=== PATIENT | female | born 1995 | race American Indian/Alaskan Native ===

== ENCOUNTER 2019-10-30 23:39 | Emergency (ER) | payer SELFPAY ==
[2019-10-31] MEDS ORDERED: SODIUM CHLORIDE 0.9% 1000 ML 1,000 ML ONE (00:03)
--- NOTE | 2019-10-31 00:04 | Emergency Department Report ---
ED Lower Extremity HPI - General Stated Complaint: LEFT KNEE DISLOCATED Time Seen by Provider: 10/30/19 23:48 Source: patient, EMS Mode of arrival: Stretcher Limitations: No Limitations - History of Present Illness Initial Comments: Patient is a 24-year-old female that presents emergency room with complaints of left knee pain. Patient states she was wrestling with her little sister and her knee popped. Patient states it immediately became deformed and became swollen. Patient states she is unable to move her knee due to the pain. Patient states the pain is a 10 out of 10. Patient states the pain is worse with movement better with rest and immobilization. Patient brought in by EMS and a long-leg splint. Report received from EMS. Patient given fentanyl 50 mcgs for pain. MD Complaint: knee injury -: Sudden Injury: Knee: Left Type of Injury: inversion Place: home Severity: severe Severity scale (0 -10): 10 Improves With: rest Worsens With: weight bearing, movement, palpation Context: fall Associated Symptoms: snap/pop sensation, swelling, unable to bear weight Treatments Prior to Arrival: splint - Related Data Previous Rx's Medication Instructions Recorded Last Taken Type Acetaminophen/Codeine [Tylenol 1 tab PO Q6H PRN #10 tab 10/31/19 Unknown Rx /Codeine # 3 tab] Allergies Allergy/AdvReac Type Severity Reaction Status Date / Time No Known Allergies Allergy Unverified 10/31/19 00:09 ED Review of Systems ROS: Stated complaint: LEFT KNEE DISLOCATED Other details as noted in HPI Comment: Last menstrual period 13 October Constitutional: denies: chills, fever Eyes: denies: eye pain, eye discharge, vision change ENT: denies: ear pain, throat pain Respiratory: denies: cough, shortness of breath, wheezing Cardiovascular: denies: chest pain, palpitations Endocrine: no symptoms reported Gastrointestinal: denies: abdominal pain, nausea, diarrhea Genitourinary: denies: urgency, dysuria, discharge Musculoskeletal: denies: back pain, joint swelling, arthralgia Skin: denies: rash, lesions Neurological: denies: headache, weakness, paresthesias Psychiatric: denies: anxiety, depression Hematological/Lymphatic: denies: easy bleeding, easy bruising ED Past Medical Hx - Past Medical History Previous Medical History?: No - Surgical History Past Surgical History?: No - Family History Family history: no significant - Social History Smoking Status: Never Smoker Substance Use Type: None - Medications Home Medications: Home Medications Medication Instructions Recorded Confirmed Last Taken Type Acetaminophen/Codeine [Tylenol 1 tab PO Q6H PRN #10 tab 10/31/19 Unknown Rx /Codeine # 3 tab] ED Physical Exam - General Limitations: No Limitations General appearance: alert, in no apparent distress - Head Head exam: Present: atraumatic, normocephalic - Eye Eye exam: Present: normal appearance - ENT ENT exam: Present: mucous membranes moist - Neck Neck exam: Present: normal inspection - Respiratory Respiratory exam: Present: normal lung sounds bilaterally. Absent: respiratory distress - Cardiovascular Cardiovascular Exam: Present: regular rate, normal rhythm. Absent: systolic murmur, diastolic murmur, rubs, gallop - GI/Abdominal GI/Abdominal exam: Present: soft, normal bowel sounds - Extremities Exam Extremities exam: Present: normal inspection (except for Left knee deformity.), full ROM (Except left knee), tenderness (Left knee tenderness), normal capillary refill, joint swelling. Absent: pedal edema, calf tenderness - Back Exam Back exam: Present: normal inspection - Neurological Exam Neurological exam: Present: alert, oriented X3 - Psychiatric Psychiatric exam: Present: normal affect, normal mood - Skin Skin exam: Present: warm, dry, intact, normal color. Absent: rash ED Course Vital Signs 10/31/19 10/31/19 10/31/19 00:04 00:15 00:16 Pulse Rate 75 Pulse Rate [ 106 H Intra-Procedure ] Pulse Rate [ Post-Procedure] Pulse Rate [Pre 69 -Procedure] Respiratory 17 18 Rate Respiratory 14 Rate [Intra- Procedure] Respiratory Rate [Post- Procedure] Respiratory 20 Rate [Pre- Procedure] Blood Pressure 149/94 [Intra- Procedure] Blood Pressure [Post-Procedure ] Blood Pressure 100/81 [Pre-Procedure] Blood Pressure 98/47 [Right] O2 Sat by Pulse 100 Oximetry O2 Sat by Pulse 100 Oximetry [ Intra-Procedure ] O2 Sat by Pulse Oximetry [Post -Procedure] O2 Sat by Pulse 100 Oximetry [Pre- Procedure] 10/31/19 10/31/19 10/31/19 00:17 00:30 00:45 Pulse Rate Pulse Rate [ Intra-Procedure ] Pulse Rate [ 129 H 97 H Post-Procedure] Pulse Rate [Pre 71 -Procedure] Respiratory Rate Respiratory Rate [Intra- Procedure] Respiratory 20 14 Rate [Post- Procedure] Respiratory 11 L Rate [Pre- Procedure] Blood Pressure [Intra- Procedure] Blood Pressure 156/94 140/83 [Post-Procedure ] Blood Pressure 124/69 [Pre-Procedure] Blood Pressure [Right] O2 Sat by Pulse Oximetry O2 Sat by Pulse Oximetry [ Intra-Procedure ] O2 Sat by Pulse 100 100 Oximetry [Post -Procedure] O2 Sat by Pulse 100 Oximetry [Pre- Procedure] 10/31/19 10/31/19 00:55 01:00 Pulse Rate 138 H Pulse Rate [ Intra-Procedure ] Pulse Rate [ 68 Post-Procedure] Pulse Rate [Pre -Procedure] Respiratory 18 Rate Respiratory Rate [Intra- Procedure] Respiratory 14 Rate [Post- Procedure] Respiratory Rate [Pre- Procedure] Blood Pressure [Intra- Procedure] Blood Pressure 118/65 [Post-Procedure ] Blood Pressure [Pre-Procedure] Blood Pressure [Right] O2 Sat by Pulse Oximetry O2 Sat by Pulse Oximetry [ Intra-Procedure ] O2 Sat by Pulse 100 Oximetry [Post -Procedure] O2 Sat by Pulse Oximetry [Pre- Procedure] - Reevaluation(s) Reevaluation #1: Initial evaluation done. Patient signed consent. Patient will have moderate sedation and a knee reduction. 10/31/19 00:04 Reevaluation #2: Patient's procedure done. Patient received ketamine for mild sedation. Patient's left patella was reduced without difficulty. No complication noted. See procedure note. We will continue to monitor the patient's vital signs and patient until the patient is back to baseline. 10/31/19 00:19 Reevaluation #3: Patient talking on the phone. Patient states she is feeling a little lightheaded. Patient's vital signs stable. We will continue to monitor the patient. 10/31/19 00:30 Reevaluation #4: Patient states she is feeling a little bit better. Patient states she does not feel like she could use crutches quite yet. We will continue to monitor patient. Vital signs stable. 10/31/19 00:48 Reevaluation #5: Patient ambulated without difficulty. Patient use crutches. Patient's crutches training done. Patient stable for discharge. I discussed all results and clinical findings with patient. I discussed plan of care with patient. Patient agrees with plan of care. Patient is stable for discharge. Patient will be discharged home. Patient given discharge instructions. Patient voiced understanding of discharge instructions. 10/31/19 01:11 - Moderate Sedation Indications: fracture/dislocation redu Presedation Evaluation: Last oral intake 3 hours ago Preparation: monitoring analyst applied, pulse oximeter, capnometry used, supplemental O2 applied, suction/airway equipment at bedside, IV secured Complications: none Patient Tolerated Procedure: well, no complications - Orthopedic Joint Reduction Joint #1 Consent Obtained: verbal consent Time Out Performed: Yes Side: left Joint Reduction Location: knee/patella Analgesia: moderate sedation Shoulder Technique Used (if applicable): traction/counter-traction Technique Used: traction/counter-traction Post-Reduction Neuro Exam: intact, no change Post-Reduction Vascular Exam: intact, no change Post Reduction X-Ray Obtained: Yes Post Reduction X-Ray Results: reduced Splint Applied: Yes Patient Tolerated Procedure: well, no complications ED Lower Extremity MDM - Radiology Data Radiology results: report reviewed, image reviewed interpreted by me: LEFT KNEE 2 VIEW(S) 11:55 PM INDICATION / CLINICAL INFORMATION: pain and deformity COMPARISON: None available. FINDINGS: BONES / JOINT(S): Lateral dislocation of the patella. No fracture. No significant arthritis. SOFT TISSUES: Mild anterior soft tissue swelling. ADDITIONAL FINDINGS: None. LEFT KNEE 1 VIEW(S) 12:14 AM INDICATION / CLINICAL INFORMATION: Post reduction COMPARISON: 10/30/19 FINDINGS: BONES / JOINT(S): Single lateral view of the left knee demonstrates normal patellofemoral alignment with interval reduction of the patellofemoral dislocation. No significant arthritis. SOFT TISSUES: Mild anterior soft tissue swelling. ADDITIONAL FINDINGS: None. - Medical Decision Making Patient is a 24-year-old female that presents emergency room with left knee pain and left knee deformity. Patient sustained a patellar dislocation. Patient had moderate sedation and patellar reduction. Patient had a x-ray to confirm satisfactory reduction. Patient monitored for satisfactory amount of time to allow the patient to return to baseline. Patient's family here to accept responsibility for the patient. Patient stable for discharge. - Differential Diagnosis Patellar dislocation, fracture, strain, deformity, knee pain Critical Care Time: Yes Critical care time in (mins) excluding proc time.: 45 Critical care attestation.: If time is entered above; I have spent that time in minutes in the direct care of this critically ill patient, excluding procedure time. Critical Care Time: 45 minutes ED Disposition Clinical Impression: Patellar dislocation Qualifiers: Encounter type: initial encounter Laterality: left Qualified Code(s): S83.005A - Unspecified dislocation of left patella, initial encounter Knee pain, left Qualifiers: Chronicity: acute Qualified Code(s): M25.562 - Pain in left knee Disposition: TO HOME OR SELFCARE Is pt being admited?: No Does the pt Need Aspirin: No Condition: Stable Instructions: Moderate Sedation (ED), Patellar Dislocation (ED) Additional Instructions: Patient to follow-up with primary care in 2 to 3 days. Patient to follow-up with orthopedist in 2 to 3 days. Patient to rest. Patient to increase water. Patient to avoid strenuous exercise or heavy lifting until cleared by orthopedist. Patient to keep knee immobilizer on until cleared by orthopedist. Patient to take Tylenol or ibuprofen as needed for pain. Patient to return to the ER if condition worsens, changes or new symptoms arise. Prescriptions: Acetaminophen/Codeine [Tylenol /Codeine # 3 tab] 1 tab PO Q6H PRN #10 tab PRN Reason: Pain , Severe (7-10) Referrals: KOMAL BEASLEY MD [Staff Physician] - 2-3 Days Time of Disposition: 01:12
[2019-10-31] MEDS ORDERED: KETAMINE 500 MG/5 ML VIAL MDV IV ONE (00:09)
[2019-10-31] MEDS ORDERED: ONDANSETRON 4 MG/2 ML INJ IV ONE (00:09)
[2019-10-31] MEDS ORDERED: SODIUM CHLORIDE 0.9% 1000 ML 1,000 ML IV ONE (00:09)
[2019-10-31] MEDS ORDERED: KETAMINE 500 MG/5 ML VIAL MDV ONE (00:12)
--- NOTE | 2019-10-31 00:42 | XRay Report ---
LEFT KNEE 2 VIEW(S) 11:55 PM INDICATION / CLINICAL INFORMATION: pain and deformity COMPARISON: None available. FINDINGS: BONES / JOINT(S): Lateral dislocation of the patella. No fracture. No significant arthritis. SOFT TISSUES: Mild anterior soft tissue swelling. ADDITIONAL FINDINGS: None. Signer Name: Jacques Lundy MD Signed: 10/31/2019 12:38 AM Workstation Name: [id number]
--- NOTE | 2019-10-31 00:43 | XRay Report ---
LEFT KNEE 1 VIEW(S) 12:14 AM INDICATION / CLINICAL INFORMATION: Post reduction COMPARISON: 10/30/19 FINDINGS: BONES / JOINT(S): Single lateral view of the left knee demonstrates normal patellofemoral alignment w ith interval reduction of the patellofemoral dislocation. No significant arthritis. SOFT TISSUES: Mild anterior soft tissue swelling. ADDITIONAL FINDINGS: None. Signer Name: Jacques Lundy MD Signed: 10/31/2019 12:39 AM Workstation Name: [id number]
[2019-10-31 02:32] VITALS: BP 118/65
== END 2019-10-31 01:15 | disposition home or self-care (01) ==
LOC: ED 23:39
DX: S83.005A Unspecified dislocation of left patella, initial encounter (principal); Z79.899 Other long term (current) drug therapy; X58.XXXA Exposure to other specified factors, initial encounter; Y93.72 Activity, wrestling; Y92.009 Unspecified place in unspecified non-institutional (private) residence as the place of occurrence of the external cause; Y99.8 Other external cause status
CPT/HCPCS: 27562; 73560; 96374; 99284; J2405; J7030; 96375